=== PATIENT | male | born 1955 | race Hispanic/Latino ===

== ENCOUNTER 2024-04-10 01:27 | Emergency (ER) | payer MEDICARE, OTHER ==
[2024-04-10 02:20] LABS: PT Prothrombin Time 10.8 SECONDS (9.4-12.5); Protime INR 0.96
[2024-04-10 02:22] LABS: Absolute Basophils 0.1 K/uL (0-0.5); Absolute Eosinophils 0.1 K/uL (0-0.5); Absolute Lymphocytes (CBC) 1.3 K/uL (0.7-4.9); Absolute Monocytes 0.5 K/uL (0.1-1.3); Absolute Neutrophil 3.5 K/uL (1.8-8.0); Basophils % 1.2 % (0-1.3); Eosinophils % 1.8 % (0-4.4); Hematocrit 46.1 % (39.6-49.0); Hemoglobin 15.4 g/dL (13.6-17.9); Lymphocytes % 23.9 % (15.3-44.8); MCH 30.8 pg (27.0-35.0); MCHC 33.4 g/dL (32.0-36.0); MCV 92.1 fL (80-100); MPV 7.6 fL (7.6-11.3); Monocytes % 9.4 % (3.3-12.3); Neutrophils % 63.7 % (41.7-73.7); Nucleated Red Blood Cells % 0.1 % (0-0); Platelets 214 thou/uL (152-406)
[2024-04-10 02:47] LABS: ALT/SGPT 29 U/L (16-61); Albumin 3.7 g/dL (3.4-5.0); Albumin/Globulin Ratio 1.1 (1.1-1.8); Alkaline Phosphatase 47 U/L (45-117); Anion Gap 7.9 mEq/L (5.0-15.0); BUN Blood Urea Nitrogen 13 mg/dL (7-18); Bicarbonate 30 mEq/L (21-32); Bilirubin Total 0.3 mg/dL (0.2-1.0); Globulin 3.3 g/dL (2.3-3.5); Glomerular Filtration Rate 94 ml/min (=/>90); Glucose Level 125 mg/dL (74-106); NT PRO-BNP 58 pg/mL (<125); Sodium Level 141 mEq/L (136-145); Troponin High Sensitivity 10.2 pg/mL (<58.9)
[2024-04-10 02:48] LABS: AST/SGOT 21 U/L (15-37); Bilirubin Direct < 0.2 mg/dL (0-0.2); Bilirubin Indirect, Calculated 0.1 mg/dL (0.2-0.8); Magnesium 1.9 mg/dL (1.6-2.4); Potassium 3.9 mEq/L (3.5-5.1)
--- NOTE | 2024-04-10 02:52 | ER ---
Nurse's Notes [facility] Name: Janes Grande Age: 68 yrs Sex: Male : 1955 Arrival Date: 04/10/2024 Time: 01:27 Bed 6 Private MD: Diagnosis: Palpitations Presentation: 04/10 01:52 Chief complaint: Patient states: I was watching TV getting ready for bed when I started jb4 feeling my heart beat fast. It would come and go in waves. I do not have any chest pain. Coronavirus screen: At this time, the client does not indicate any symptoms associated with coronavirus-19. Ebola Screen: No symptoms or risks identified at this time. Initial Sepsis Screen: Does the patient meet any 2 criteria? No. Patient's initial sepsis screen is negative. Does the patient have a suspected source of infection? No. Patient's initial sepsis screen is negative. Risk Assessment: Do you want to hurt yourself or someone else? Patient reports no desire to harm self or others. Onset of symptoms was April 10, 2024. Transition of care: patient was not received from another setting of care. 01:52 Method Of Arrival: Wheelchair jb4 01:52 Acuity: JUAN 3 jb4 Historical: - Allergies: 01:55 No Known Allergies; jb4 - Home Meds: 01:55 irbesartan oral [Active]; Metformin Oral [Active]; Synthroid Oral [Active]; jb4 - PMHx: 01:55 HTN; DM; Hypothyroidism; jb4 - PSHx: 01:55 neck surgery; jb4 - Immunization history:: Adult Immunizations up to date. - Infectious Disease History:: Denies. - Social history:: Smoking status: Patient denies any tobacco usage or history of. Screenin:21 [facility] ED Fall Risk Assessment (Adult) History of falling in the last 3 months, bm8 including since admission No falls in past 3 months (0 pts) Confusion or Disorientation No (0 pts) Intoxicated or Sedated No (0 pts) Impaired Gait No (0 pts) Mobility Assist Device Used No (0 pt) Altered Elimination No (0 pt) Score/Fall Risk Level 0 - 2 = Low Risk Oriented to surroundings, Maintained a safe environment, Educated pt \T\ family on fall prevention, incl call for assistance when getting out of bed, Assessed \T\ reinforced patient's understanding of fall precautions, Hourly rounding (assess needs \T\ fall precautionary measures) done, Used ambulatory aids as needed (educated on \T\ assisted with), Used gait belt as appropriate. Abuse screen: Denies threats or abuse. Nutritional screening: No deficits noted. Tuberculosis screening: No symptoms or risk factors identified. Assessment: 02:21 Reassessment: Patient appears in no apparent distress at this time. Patient and/or bm8 family updated on plan of care and expected duration. Pain level reassessed. Patient is alert, oriented x 3, equal unlabored respirations, skin warm/dry/pink. Patient denies pain at this time. General: Appears in no apparent distress. comfortable, Behavior is calm, cooperative, appropriate for age. Pain: Denies pain. Neuro: No deficits noted. Level of Consciousness is awake, alert, obeys commands, Oriented to person, place, time, situation, Appropriate for age. Cardiovascular: Reports palpitations, Heart tones S1 S2 present Capillary refill < 3 seconds Patient's skin is warm and dry. Rhythm is sinus rhythm. Respiratory: Airway is patent Respiratory effort is even, unlabored, Respiratory pattern is regular, symmetrical, Breath sounds are clear bilaterally. GI: No signs and/or symptoms were reported involving the gastrointestinal system. : No signs and/or symptoms were reported regarding the genitourinary system. EENT: No signs and/or symptoms were reported regarding the EENT system. Derm: No signs and/or symptoms reported regarding the dermatologic system. Musculoskeletal: No signs and/or symptoms reported regarding the musculoskeletal system. 03:00 Reassessment: Patient appears in no apparent distress at this time. Patient and/or kj2 family updated on plan of care and expected duration. Pain level reassessed. Patient is alert, oriented x 3, equal unlabored respirations, skin warm/dry/pink. Vital Signs: 01:52 Pulse 74; Resp 16; Temp 98.1(TE); Pulse Ox 100% on R/A; Weight 92.53 kg; Height 5 ft. 9 jb4 in. ; Pain 0/10; 02:21 Pulse 75; Resp 17; Temp 98.5; Pulse Ox 99% ; Pain 0/10; bm8 02:25 BP 177 / 100; jb4 03:13 BP 153 / 90; Pulse 80; Resp 18; Temp 98; Pulse Ox 100% on R/A; kj2 01:52 Body Mass Index 30.12 (92.53 kg, 175.26 cm) jb4 01:52 Pain Scale: Adult jb4 02:21 Pain Scale: Adult bm8 Melanie Coma Score: 02:21 Eye Response: spontaneous(4). Motor Response: obeys commands(6). Verbal Response: bm8 oriented(5). Total: 15. ED Course: 01:38 Patient arrived in ED. gm2 01:45 Barrington Diaz MD is Attending Physician. sp3 01:55 Triage completed. jb4 01:55 Arm band placed on right wrist. jb4 01:59 Chase Heck, RN is Primary Nurse. bm8 02:21 Patient has correct armband on for positive identification. Placed in gown. Bed in low bm8 position. Call light in reach. Side rails up X 1. Adult w/ patient. Client placed on continuous cardiac and pulse oximetry monitoring. NIBP monitoring applied. media monitor on. Pulse ox on. NIBP on. Door closed. Noise minimized. Warm blanket given. Pillow given. Verbal reassurance given. Head of bed elevated. 02:21 No provider procedures requiring assistance completed. Initial lab(s) drawn, by dayday johnston sent to lab. EKG done, by ED staff, reviewed by Chase Heck RN. Inserted saline lock: 18 gauge in left antecubital area, using aseptic technique. Blood collected. Flushed with 10 mL NS. Patient maintains SpO2 saturation greater than 95% on room air. 02:55 XRAY Chest (1 view) In Process Unspecified. EDMS Administered Medications: No medications were administered Medication: 02:21 VIS not applicable for this client. bm8 Outcome: 02:52 Discharge ordered by . sp3 03:17 Patient left the ED. kj2 Signatures: Dispatcher [employer] EDMS Junior Max RN RN jb4 Barrington Diaz MD MD sp3 Sneha Jorge gm2 Chase Heck, RN RN bm8 Margret Millard RN RN kj2 Corrections: (The following items were deleted from the chart) 02:23 01:52 Resp 16bpm; Temp 98.1F Temporal; 92.53 kg; Height 5 ft. 9 in.; BMI: 30.1; Pain jb4 0/10, Adult; jb4
--- NOTE | 2024-04-10 02:53 | EDPHYS ---
Physician Documentation [facility] Name: Janes Grande Age: 68 yrs Sex: Male : 1955 Arrival Date: 04/10/2024 Time: 01:27 Bed 6 Private MD: ED Physician Barrington Diaz HPI: 04/10 02:16 This 68 yrs old Male presents to ER via Wheelchair with complaints of Irregular heart sp3 beat. 02:16 68-year-old male with history of hypertension, diabetes, hypothyroidism presents to the sp3 ED with chief complaint palpitations over the last 2 to 3 days. Patient denies headache, fever, URI symptoms, chest pain, shortness of breath, abdominal pain, nausea, vomiting, diarrhea, jaw pain, left arm pain, other anginal equivalents, prolonged immobilization, known sick contacts, travel history, or any other signs or symptoms on ROS at this time.. Historical: - Allergies: 01:55 No Known Allergies; jb4 - Home Meds: 01:55 irbesartan oral [Active]; Metformin Oral [Active]; Synthroid Oral [Active]; jb4 - PMHx: 01:55 HTN; DM; Hypothyroidism; jb4 - PSHx: 01:55 neck surgery; jb4 - Immunization history:: Adult Immunizations up to date. - Infectious Disease History:: Denies. - Social history:: Smoking status: Patient denies any tobacco usage or history of. ROS: 02:18 Constitutional: Negative for fever, chills, and weight loss, Eyes: Negative for injury, sp3 pain, redness, and discharge, ENT: Negative for injury, pain, and discharge, Neck: Negative for injury, pain, and swelling, Respiratory: Negative for shortness of breath, cough, wheezing, and pleuritic chest pain, Abdomen/GI: Negative for abdominal pain, nausea, vomiting, diarrhea, and constipation, Back: Negative for injury and pain, MS/Extremity: Negative for injury and deformity, Skin: Negative for injury, rash, and discoloration, Neuro: Negative for headache, weakness, numbness, tingling, and seizure, Psych: Negative for depression, anxiety, suicide ideation, homicidal ideation, and hallucinations, Allergy/Immunology: Negative for hives, rash, and allergies, Endocrine: Negative for neck swelling, polydipsia, polyuria, polyphagia, and marked weight changes, Hematologic/Lymphatic: Negative for swollen nodes, abnormal bleeding, and unusual bruising, 02:18 All other systems are negative, Exam: 02:18 Constitutional: This is a well developed, well nourished patient who is awake, alert, sp3 and in no acute distress. Head/Face: Normocephalic, atraumatic. Eyes: Pupils equal round and reactive to light, extra-ocular motions intact. Lids and lashes normal. Conjunctiva and sclera are non-icteric and not injected. Cornea within normal limits. Periorbital areas with no swelling, redness, or edema. ENT: Nares patent. No nasal discharge, no septal abnormalities noted. External auditory canals are clear. Oropharynx with no redness, swelling, or masses, exudates, or evidence of obstruction, uvula midline. Mucous membranes moist. Neck: Trachea midline, no thyromegaly or masses palpated, and no cervical lymphadenopathy. Supple, full range of motion without nuchal rigidity, or vertebral point tenderness. No Meningismus. Chest/axilla: Normal chest wall appearance and motion. Nontender with no deformity. No lesions are appreciated. Cardiovascular: Regular rate and rhythm with a normal S1 and S2. No gallops, murmurs, or rubs. Normal PMI, no JVD. No pulse deficits. Respiratory: Lungs have equal breath sounds bilaterally, clear to auscultation and percussion. No rales, rhonchi or wheezes noted. No increased work of breathing, no retractions or nasal flaring. Abdomen/GI: Soft, non-tender, with normal bowel sounds. No distension or tympany. No guarding or rebound. No evidence of tenderness throughout. Back: No spinal tenderness. No costovertebral tenderness. Full range of motion. Skin: Warm, dry with normal turgor. Normal color with no rashes, no lesions, and no evidence of cellulitis. MS/ Extremity: Pulses equal, no cyanosis. Neurovascular intact. Full, normal range of motion. Neuro: Awake and alert, GCS 15, oriented to person, place, time, and situation. Cranial nerves II-XII grossly intact. Motor strength 5/5 in all extremities. Sensory grossly intact. Cerebellar exam normal. Normal gait. Psych: Awake, alert, with orientation to person, place and time. Behavior, mood, and affect are within normal limits. 02:18 ECG was reviewed by the Attending Physician. EKG demonstrates normal sinus rhythm at 76 bpm with normal intervals, normal QRS, normal axis, normal ST/T-segment's without evidence of acute ischemia. Vital Signs: 01:52 Pulse 74; Resp 16; Temp 98.1(TE); Pulse Ox 100% on R/A; Weight 92.53 kg; Height 5 ft. 9 jb4 in. ; Pain 0/10; 02:21 Pulse 75; Resp 17; Temp 98.5; Pulse Ox 99% ; Pain 0/10; bm8 02:25 BP 177 / 100; jb4 03:13 BP 153 / 90; Pulse 80; Resp 18; Temp 98; Pulse Ox 100% on R/A; kj2 01:52 Body Mass Index 30.12 (92.53 kg, 175.26 cm) jb4 01:52 Pain Scale: Adult jb4 02:21 Pain Scale: Adult bm8 [place] Coma Score: 02:21 Eye Response: spontaneous(4). Motor Response: obeys commands(6). Verbal Response: bm8 oriented(5). Total: 15. MDM: 01:45 Patient medically screened. sp3 02:19 ED course: 68-year-old male with palpitations now fully resolved with no abnormalities sp3 on exam or findings here. EKG is normal. Chest x-ray and labs pending. Clinically I am not highly suspicious of acute coronary syndrome, paroxysmal atrial fibrillation or other critical arrhythmia, sepsis, shock, electrolyte abnormality, thyroid storm, or any other critical process. If workup negative we will safely discharge patient home.. 02:51 ED course: Full workup negative including x-ray and labs. Will discharge patient home sp3 with PCP follow-up. Consider changing testosterone dosing given blood pressure 177/100. Patient is aware and will follow-up with PCP. Consider outpatient Holter monitor as well.. 04/10 01:46 Order name: Basic Metabolic Panel; Complete Time: 02:50 sp3 04/10 01:46 Order name: CBC with Diff; Complete Time: 02:50 sp3 04/10 01:46 Order name: LFT's; Complete Time: 02:50 sp3 04/10 01:46 Order name: Magnesium; Complete Time: 02:50 sp3 04/10 01:46 Order name: NT PRO-BNP; Complete Time: 02:50 sp3 04/10 01:46 Order name: PT-INR; Complete Time: 02:50 sp3 04/10 01:46 Order name: Troponin HS; Complete Time: 02:50 sp3 04/10 01:46 Order name: XRAY Chest (1 view) sp3 04/10 01:46 Order name: Cardiac monitoring; Complete Time: 01:59 sp3 04/10 01:46 Order name: EKG - Nurse/Tech; Complete Time: 01:59 sp3 04/10 01:46 Order name: IV Saline Lock; Complete Time: 01:59 sp3 04/10 01:46 Order name: Labs collected and sent; Complete Time: :59 sp3 04/10 01:46 Order name: O2 Per Protocol; Complete Time: :59 sp3 04/10 01:46 Order name: O2 Sat Monitoring; Complete Time: :59 sp3 Administered Medications: No medications were administered Disposition Summary: 04/10/24 02:52 Discharge Ordered Notes: Location: Home sp3 Condition: Stable sp3 Diagnosis - Palpitations sp3 Followup: sp3 - With: Private Physician - When: Upon discharge from the Emergency Department - Reason: Continuance of care Discharge Instructions: - Discharge Summary Sheet sp3 - Palpitations sp3 Forms: - Medication Reconciliation Form sp3 - Antibiotic Education sp3 - Prescription Opioid Use sp3 - Patient Portal Instructions sp3 - Leadership Thank You Letter sp3 Signatures: [facility]patcher [facility] Jeffrey RN RN jb4 Barrington Diaz MD MD sp3 Corrections: (The following items were deleted from the chart) 01:46 01:46 BASIC METABOLIC PANEL+C.LAB.BRZ ordered. EDMS EDMS 01:46 01:46 CBC+H.LAB.BRZ ordered. EDMS EDMS 01:46 01:46 HEPATIC FUNCTION+C.LAB.BRZ ordered. EDMS EDMS 01:46 01:46 MAGNESIUM+C.LAB.BRZ ordered. EDMS EDMS 01:46 01:46 PROBNP+C.LAB.BRZ ordered. EDMS EDMS 01:46 01:46 PROTIME (+INR)+COAG.LAB.BRZ ordered. EDMS EDMS 01:46 01:46 Troponin High Sensitivity+C.LAB.BRZ ordered. EDMS EDMS 01:46 01:46 Chest Single View+RAD.RAD.BRZ ordered. EDMS EDMS 02:19 02:18 Constitutional: This is a well developed, well nourished patient who is awake, sp3 alert, and in no acute distress. Head/Face: Normocephalic, atraumatic. Eyes: Pupils equal round and reactive to light, extra-ocular motions intact. Lids and lashes normal. Conjunctiva and sclera are non-icteric and not injected. Cornea within normal limits. Periorbital areas with no swelling, redness, or edema. ENT: Nares patent. No nasal discharge, no septal abnormalities noted. External auditory canals are clear. Oropharynx with no redness, swelling, or masses, exudates, or evidence of obstruction, uvula midline. Mucous membranes moist. Neck: Trachea midline, no thyromegaly or masses palpated, and no cervical lymphadenopathy. Supple, full range of motion without nuchal rigidity, or vertebral point tenderness. No Meningismus. Chest/axilla: Normal chest wall appearance and motion. Nontender with no deformity. No lesions are appreciated. Respiratory: Lungs have equal breath sounds bilaterally, clear to auscultation and percussion. No rales, rhonchi or wheezes noted. No increased work of breathing, no retractions or nasal flaring. Abdomen/GI: Soft, non-tender, with normal bowel sounds. No distension or tympany. No guarding or rebound. No evidence of tenderness throughout. Back: No spinal tenderness. No costovertebral tenderness. Full range of motion. Skin: Warm, dry with normal turgor. Normal color with no rashes, no lesions, and no evidence of cellulitis. MS/ Extremity: Pulses equal, no cyanosis. Neurovascular intact. Full, normal range of motion. Neuro: Awake and alert, GCS 15, oriented to person, place, time, and situation. Cranial nerves II-XII grossly intact. Motor strength 5/5 in all extremities. Sensory grossly intact. Cerebellar exam normal. Normal gait. Psych: Awake, alert, with orientation to person, place and time. Behavior, mood, and affect are within normal limits. sp3
--- NOTE | 2024-04-10 06:07 | RAD REPORT ---
EXAM: XR Chest, 1 View CLINICAL HISTORY: The patient is 68 years old and is Male; Palpitations. TECHNIQUE: Single view of the chest. COMPARISON: No relevant prior studies available. FINDINGS: Lungs: No pulmonary vascular congestion or consolidation. Pleural space: Unremarkable. No pneumothorax. Heart: Unremarkable. No cardiomegaly. Mediastinum: Unremarkable. Bones/joints: Vertebral osteophytes. No acute rib fracture. Upper abdomen: No free air in the visualized upper abdomen. IMPRESSION: No acute cardiopulmonary process identified. Electronically signed by: Noa Herndon MD 04/10/2024 04:38 AM CDT RP ND Due to temporary technical issues with the [employer] reporting system, reports are being yany d by the in-house radiologist without review as a courtesy to ensure prompt reporting the interpreting radiologist is fully responsible for the content of the report. Transcribed Date/Time: 04/10/2024 6:07 AM
--- NOTE | 2024-04-10 12:55 | EKG ---
Test Date: 2024-04-10 Test Time: 01:53:05 Metal Trimmer: MAYITO MEASUREMENT RESULTS: Intervals: Rate: 76 IL: 164 QRSD: 114 QT: 370 QTc: 416 [place]: P: 51 IL: 164 QRS: -40 T: 44 INTERPRETIVE STATEMENTS: Normal sinus rhythm Left axis deviation Abnormal ECG No previous ECG available for comparison Electronically Signed On 04-10-24 12:54:03 CDT by Ezequiel King
[2024-04-10 17:01] VITALS: BP 153/90; TEMP 98; O2SAT 100
== END 2024-04-10 03:17 | disposition home or self-care (01) ==
LOC: ER 01:27
DX: R00.2 Palpitations (principal); I10 Essential (primary) hypertension; E11.9 Type 2 diabetes mellitus without complications; E03.9 Hypothyroidism, unspecified
CPT/HCPCS: 36415; 71045; 80048; 80076; 83735; 83880; 84484; 85025; 85610; 93005; 99284